=== PATIENT | female | born 1990 | race Caucasian/White ===

== ENCOUNTER → 2016-11-17 20:25 | Observation (INO) ==
[2016-11-17 19:27] LABS: Amphetamine Screen,Urine Negative ng/mL (Cutoff=1000); Barbiturate Screen,Urine Negative ng/mL (Cutoff=200); Benzodiazepines Screen,Urine Negative ng/mL (Cutoff=200); Cannabinoid Screen,Urine Negative ng/mL (Cutoff = 50); Cocaine Screen,Urine Negative ng/mL (Cutoff= 300); Opiate Screen,Urine Negative ng/mL (Cutoff=300); Phencyclidine Screen,Urine Negative ng/mL (Cutoff=25)
[2016-11-17 19:34] LABS: Bilirubin,Urine Negative (Negative); Blood,Urine Negative (Negative); Clarity,Urine Cloudy (Clear); Color,Urine Yellow (Yellow); Glucose,Urine (UA) Normal (Normal); Ketones,Urine Negative (Negative); Leukocyte Esterase,Urine Negative (Negative); Nitrite,Urine Negative (Negative); Protein,Urine Trace mg/dL (Neg-Trace); Specific Gravity,Urine 1.027 (1.010-1.025); Urobilinogen,Urine Normal (Normal)
[2016-11-17 19:54] LABS: WBC,Urine 0-3 per hpf (0-3)
--- NOTE | 2016-11-17 20:27 | Discharge Summary ---
Date of Encounter: 11/17/16 Time of Encounter: 20:28 - Discharge Diagnosis (1) 31 weeks gestation of Priority: Primary Status: Acute Comments: admitted for monitoring and evaluation (2) Decreased movement during Priority: Secondary Status: Acute Comments: Reactive NST 140 bpm baseline. Patient reports feeling movement while on the monitor. Qualifiers: Fetus number: single or unspecified fetus Trimester: third trimester Qualified Code(s): O36.8130 - Decreased movements, third trimester, not applicable or unspecified (3) Vaginal discharge Priority: Secondary Status: Acute Comments: Negative nitrazine. - Discharge Medications Home Medications: Cephalexin [Keflex] 1 tab PO DAILY 11/17/16 [History] Vit/Iron Fumarate/FA [ Tablet] 1 tab PO DAILY 11/17/16 [History ] Allergies/Adverse Reactions: 3 Allergy/AdvReac Type Severity Reaction Status Date / Time No Known Allergies Allergy Verified 11/17/16 19:04 Data Procedures and tests throughout hospitalization: Laboratory Tests 11/17/16 11/17/16 19:05 19:05 Urine Color Yellow Urine Clarity Cloudy A Urine pH 7.0 Ur Specific Johnston 1.027 H Urine Protein Trace Urine Glucose (UA) Normal Urine Ketones Negative Urine Blood Negative Urine Nitrite Negative Urine Bilirubin Negative Urine Urobilinogen Normal Ur Leukocyte Esterase Negative Urine Microscopic WBC 0-3 Ur Culture Indicated? NO Urine Opiates Screen Negative Ur Barbiturates Screen Negative Ur Phencyclidine Scrn Negative Ur Amphetamines Screen Negative U Benzodiazepines Scrn Negative Urine Cocaine Screen Negative U Marijuana (THC) Screen Negative Labs on day of discharge: Labs from last 24 hours 11/17/16 11/17/16 19:05 19:05 Urine Color Yellow Urine Clarity Cloudy A Urine pH 7.0 Ur Specific Johnston 1.027 H Urine Protein Trace Urine Glucose (UA) Normal Urine Ketones Negative Urine Blood Negative Urine Nitrite Negative Urine Bilirubin Negative Urine Urobilinogen Normal Ur Leukocyte Esterase Negative Urine Microscopic WBC 0-3 Ur Culture Indicated? NO Urine Opiates Screen Negative Ur Barbiturates Screen Negative Ur Phencyclidine Scrn Negative Ur Amphetamines Screen Negative U Benzodiazepines Scrn Negative Urine Cocaine Screen Negative U Marijuana (THC) Screen Negative Date of admission: 11/17/16 18:45 Discharging clinician: Maria C Esparza Anticipated date of discharge: 11/17/16 - Patient Status Disposition: Home, Self-Care Condition: Good Functional capacity at discharge: independent ambulation - Discharge Instructions Follow Up With: Misty Gomez MD [Partnered Physician] - Additional Instructions: Keep appointments LABOR AND DELIVERY DISCHARGE INSTRUCTIONS Signs and Symptoms to be Reported to your Doctor Immediately: * Sudden gush, continuous or intermittent lead of fluid from vagina (note the time of gush and color of fluid) * Onset of bright red vaginal bleeding with or without pain (if you had a vaginal exam during this visit you may notice some dark red spotting. This is normal.) * Lower abdominal cramping or backache that is premenstrual-like feeling. * More than 6 contractions in one hour. * Burning during urination, having to urinate more frequently or pain in your mid-back. * A change in the baby's activity. This could be an increase or decrease in activity. * Severe headache which does not go away with tylenol. * Sudden swelling in the face, hands, arms and/or legs. * Upper abdominal pain - sometimes associated with heartburn or nausea and is not relieved by Maalox, Mylanta or Tums. * Dizziness or blurred vision or visual disturbances (seeing stars/lights). * Kick Counts One hour after a meal, lay down on one side in a quiet place. Count the number of james the baby moves during an hour. If less than 6 movements, notify your physician. Diet: *Force fluids - 8-10 tall glasses of fluid per day. May include popsicles and jello. *Limit caffeine - this includes chocolate, coffee, tea, any soft drink containing such as all kana, Guillermo Yellow and Mountain Dew - Diet and Activity Activity: increase activity as tolerated Diet: regular diet Hospital Course [employer]ORY [employer]PER[employer]OR Hospital course: Patient is 26 y/o at 31w2d presents to labor and delivery with complaints of decreased movement for 1 day. Patient also reports leaking but states she believes it was urine. Patient is on last day of keflex for UTI. Patient denies feeling contractions but reports some cramping. Patient denies and VB, vaginal itching or burning, denies dysuria or urinary frequency. Patient reports she does not drink much water and hasn't drank much of anything today. Time Attestation: Total time spent providing and/or coordinating discharge services: Time Spent: Less than 30 minutes Exam - Constitutional General appearance IM: A&O X 3, pleasant, answers questions appropriately - Respiratory Respiratory exam: Present: CTAB - Cardiovascular Cardiovascular exam IM: Present: RRR, +S1, +S2 - GI/Abdominal GI/Abdominal exam IM: normal bowel sounds Additional comments: no CVA tenderness - Additional comments: SVE: Closed/Thick/-3, Nitrazine negative - Extremities Exam Extremities exam IM: Present: full ROM, normal capillary refill, normal inspection - Neurological Exam Neurological exam: alert, oriented X3, reflexes normal - Other Additional findings: FHR 140 bpm moderate variability +15x15 accels no decels noted. Occasional contraction noted. - VTE Reasons for not Prescribing Prophylaxis: Treatment not Indicated - Low risk for VTE
== END | disposition home or self-care (01) ==
LOC: 1NENULAB
PROVIDERS: ADMIT Obstetrics & Gynecology; ATTEND Obstetrics & Gynecology

== ENCOUNTER 2016-12-23 05:19 | Inpatient (IN) ==
[2016-12-23] MEDS ORDERED: Oxytocin 20 units/ LR 1000 mL 20 UNIT/1,000 ML BAG IVC ONE (05:26)
[2016-12-23] MEDS ORDERED: Ringers Solution, Lactated 1,000 ML IVC ONE (05:26)
[2016-12-23] MEDS ORDERED: Metoclopramide 10 MG/2 ML VIAL IVP ONE (05:26)
[2016-12-23] MEDS ORDERED: CeFAZolin Pre 2,000 MG/100 ML 2,000 MG/100 ML BAG IVPB ONE (05:26)
[2016-12-23] MEDS ORDERED: Famotidine 20 MG/2 ML VIAL IVP ONE (05:26)
--- NOTE | 2016-12-23 05:41 | OB/GYN History & Physical ---
Date of Encounter: 12/23/16 Time of Encounter: 05:25 Assessment and Plan (1) 36 weeks gestation of Current visit: No Status: Acute (2) Breech presentation on examination Current visit: Yes Status: Acute -Admit for . Qualifiers: Fetus number: single or unspecified fetus Qualified Code(s): O32.1XX0 - Maternal care for breech presentation, not applicable or unspecified (3) Encounter for suspected PROM, with rupture of membranes not found Current visit: No Status: Acute History of Present Illness Chief complaint: PROM HPI: Ms. Larios is a 26 year old female at 36 3/7 wks gestation that presents for PROM. Patient says that she had vaginal fluid leaking at 0445 this morning. She denies any contractinos. Denies vaginal bleeding. She denies any chest pain. Admits to nausea but denies vomiting. Denies fever, dysuria, diarrhea, headaches, or vision changes. Blood type: O+ HIV Ag/Ab: Non-reactive T. pallidum: negative Rubella Ab: negative Varicella Ab: positive HepBSAg: non-reactive (07/07/16) GBS: pending results Past Med Surg Social Fam HX - Past Medical History Medical history: no medical history Psychiatric history: no psych history - Past Surgical History Surgical History: other - Social History Smoking Status: Former smoker Smokeless Tobacco Status: No Alcohol use: none Drug use: none - Family History Father Living Status: Still Living Hx Family Cardiac Disorders: No Hx Family Respiratory Disorders: No Hx Family Cancer: No Hx Family GI Disorders: No Hx Family Endocrine Disorder: No Hx Family Neuromuscular Disorders: No Hx Family Neurologic Disorders: No Hx Family HEENT Disorders: No Hx Family Autoimmune Disorders: No Obstetrical History - Pregnancies : 2 Para: 0 Term: 0 : 0 Ab's: 1 Livin Medications and Allergies Vit/Iron Fumarate/FA [ Tablet] 1 tab PO DAILY 11/17/16 [History ] 3 Allergy/AdvReac Type Severity Reaction Status Date / Time No Known Allergies Allergy Verified 12/23/16 06:12 Exam - Constitutional Constitutional: well developed, well nourished, no acute distress, average body habitus - HEENT HEENT: PERRL, Mucus Membranes Moist - Lungs Respiratory exam: CTAB - Cardiovascular Cardiovascular exam: RRR, +S1, +S2 - Abdomen Abdomen: Present: bowel sounds normal, gravid, non tender - Extremities Extremities exam: normal capillary refill, normal inspection, radial pulses palpable and symmetrical Deep Tendon Reflex Grade: 2+ Normal - Uterus Uterus exam: Present: normal size, normal contour Results Result Diagrams: 12/23/16 05:25 All other labs normal. - VTE Reasons for not Prescribing Prophylaxis: Treatment not Indicated - Low risk for VTE
[2016-12-23 05:42] LABS: Basophils % 0.1 %; Hematocrit 33.6 % (35.3-44.9); Hemoglobin 11.7 g/dL (11.5-15.4); Immature Granulocytes % 1.4 % (0-4); Lymphocytes % 7.3 %; Mean Corpuscular HGB Conc 34.8 g/dL (31.6-35.5); Mean Corpuscular Hemoglobin 29.5 pg (28.0-33.3); Mean Corpuscular Volume 84.8 fL (83.0-100.0); Mean Platelet Volume 12.4 fL (9.4-12.4); Monocytes % 7.4 %; Neutrophils # 11.4 K/mcL (1.6-8.9); Platelet Count 214 K/mcL (140-400); Red Blood Count 3.96 M/mcL (3.82-4.97); Red Cell Distribution Width 13.2 % (11.5-14.5); Segmented Neutrophils % 83.8 %
[2016-12-23] MEDS ORDERED: *HR* HYDROmorphone (PF) 1 MG/ML SYRINGE IVP PRN ×2 (05:51→10:15)
[2016-12-23] MEDS ORDERED: *HR* Promethazine 25 MG/ML VIAL IVP PRN (05:51)
--- NOTE | 2016-12-23 05:51 | Anesthesia Evaluation PreOp ---
Date of Encounter: 12/23/16 Time of Encounter: 05:50 - Past History Planned Operation: G1 breech, primary Cardiac History: Denies any Significant Hx Pulmonary History: Denies Any Significant HX CERTIFIED PHLEBOTOMIST History: Denies Any Significant HX Other Medical History: Denies Any Significant HX Anesthesia History: No Prior Anesthetic Complications, Past Anesthesia Alcohol Use: none Drug use: none Medications and Allergies Vit/Iron Fumarate/FA [ Tablet] 1 tab PO DAILY 11/17/16 [History ] 3 Allergy/AdvReac Type Severity Reaction Status Date / Time No Known Allergies Allergy Verified 11/17/16 19:04 Anesthesia Exam - HEENT Pupil (Motor): Pupils equal Mallampati: II Teeth: Normal Oral Opening: Greater than 3 - CERTIFIED PHLEBOTOMIST LOC: Oriented CERTIFIED PHLEBOTOMIST Motor: Normal RUE, Normal LUE, Normal RLE, Normal LLE, Normal Face CERTIFIED PHLEBOTOMIST Sensory: Normal: RUE, LUE, RLE, LLE, Face - Cardiac Rhythm: Regular Murmur: None - Pulmonary Breath Sounds: bilateral Clear Respiratory Effort: Symmetrical Anesthesia Assess/Plan ASA Score: 2 Modified Maria T Scale for Level of Consciousness: Cooperative, oriented, and tranquil Anesthetic Plan: General, Regional Monitoring Plan: Standard Monitors Recovery Plan: PACU
[2016-12-23] MEDS ORDERED: Ondansetron 4 MG/2 ML VIAL ONE (06:09)
[2016-12-23] MEDS ORDERED: *HR* Morphine Sulfate/PF 5 MG/10 ML AMPUL ONE (06:09)
[2016-12-23] MEDS ORDERED: *HR* Oxytocin 10 UNIT/ML VIAL IM ONE (06:09)
[2016-12-23] MEDS ORDERED: *HR* FentaNYL (PF) 100 MCG/2 ML VIAL ONE (06:10)
[2016-12-23] MEDS ORDERED: EPHEDrine 50 MG/ML VIAL ONE (06:10)
[2016-12-23] MEDS ORDERED: Ringers Solution, Lactated 1,000 ML ONE ×2 (06:11→07:09)
[2016-12-23 06:20] LABS: Amphetamine Screen,Urine Negative ng/mL (Cutoff=1000); Barbiturate Screen,Urine Negative ng/mL (Cutoff=200); Benzodiazepines Screen,Urine Negative ng/mL (Cutoff=200); Cannabinoid Screen,Urine Negative ng/mL (Cutoff = 50); Cocaine Screen,Urine Negative ng/mL (Cutoff= 300); Opiate Screen,Urine Negative ng/mL (Cutoff=300); Phencyclidine Screen,Urine Negative ng/mL (Cutoff=25)
--- NOTE | 2016-12-23 08:39 | Anesthesia Procedures ---
Date of Encounter: 12/23/16 Time of Encounter: 08:39 Procedures: Anesthesia - Epidural/Spinal Patient examined: Yes OB Eval: Gestational age: 39 OB Eval: : 1 OB Eval: Hx Para: 0 OB Eval: Dilated at (cm): 4 OB Eval: Contractions: Non-stressed pattern Consent Obtained: Yes Supplemental Oxygen: Nasal Cannula Supplemental Oxygen Rate (L/min): 3 Site Prep: Aseptic Technique, Sterile prep and drape, 0.5% Chlorhexidine/Alcohol Patient position: upright Local Anesthetic: Lidocaine 1% Amount of Local Anesthetic used: 3 Interspace Used: L2-L3 CSF: Yes Paresthesia: No Spinal Needle Gauge: 25 Spinal Dose: marcaine 12mg, duramorph 0.2, fentanyl 7 mcg Procedure: aseptic, tolerated well, VSS, effective Vitals + FHT's: 130/88 68 16 fht 133
--- NOTE | 2016-12-23 09:32 | OB/GYN Procedure Note ---
Section - Date of procedure: 12/23/16 Preop diagnosis: breech, other (P PROM) Post-op diagnosis: same (Complete breech) Procedure: primary low transverse Surgeon: Sanjeev Newton Estimated blood loss (cc): 300 Anesthesiologist: Cornel Estrada Anesthesia Type: Spinal section complications: none Disposition: PACU Specimens: Placenta - (s) A Delivery Date: 12/23/16 Infant Delivery Time: 08:30 Presentation: vertex, complete breech Gender: Male Viability: Viable Pounds: 6 Ounces: 5 at 1 minute: 8 at 5 minutes: 9 Specimens collected: cord blood Placenta: complete extraction - Narrative Narrative: The patient was taken to the operating room. After satisfactory spinal anesthesia was achieved, she was placed in supine position, Hester catheter inserted, and prepped and draped in usual manner. After appropriate timeout, the abdomen was entered through a standard Maylard incision. The Cam retractor was placed .The peritoneum overlying the lower uterine segment was incised in the U-shaped fashion. The uterine cavity was entered sharply extended laterally. Fluid was clear. The buttocks were delivered , legs delivered , arms delivered , and head delivered without difficulty. The umbilical cord doubly clamped and cut and the infant was handed to nursery staff further evaluation. Placenta was removed and sent to pathology for analysis. Uterus closed in a single layer using 0 Monocryl. After assurance of hemostasis, the abdomen was closed standard fashion using 0 Vicryl on the fascia and 3-0 Monocryl on the skin. Sterile dressing was applied. Patient did well was taken to recovery in satisfactory condition. Counts were correct.
[2016-12-23] MEDS ORDERED: Ondansetron 4 MG/2 ML VIAL IVP PRN ×2 (10:15→12:07)
[2016-12-23] MEDS ORDERED: Acetaminophen 325 MG TABLET PO PRN (12:07)
[2016-12-23] MEDS ORDERED: Sennosides 8.6 MG TABLET PO PRN (12:07)
[2016-12-23] MEDS ORDERED: Simethicone 80 MG TAB.CHEW PO PRN (12:07)
[2016-12-23] MEDS ORDERED: Oxytocin 20 units/ LR 1000 mL 20 UNIT/1,000 ML BAG IVC SCH (12:07)
[2016-12-23] MEDS ORDERED: Measles/Mumps/Rubella Vacc 0.5 ML VIAL SQ ONE (12:07)
[2016-12-23] MEDS ORDERED: Metoclopramide 10 MG/2 ML VIAL IVP PRN (12:07)
[2016-12-23] MEDS: *HR* OxyCODONE/APAP 5/325 TABLET PO PRN ×2 (13:23→18:43)
[2016-12-23] MEDS: Ibuprofen 600 MG TABLET PO PRN (16:21)
[2016-12-24] MEDS: Ibuprofen 600 MG TABLET PO PRN ×2 (00:41→16:51)
[2016-12-24] MEDS: *HR* OxyCODONE/APAP 5/325 TABLET PO PRN ×5 (00:41→20:17)
[2016-12-24 06:33] LABS: Basophils % 0.2 %; Eosinophils % 0.4 %; Hematocrit 28.8 % (35.3-44.9); Immature Granulocytes % 1.1 % (0-4); Lymphocytes # 1.5 K/mcL (0.6-4.6); Mean Corpuscular Hemoglobin 28.6 pg (28.0-33.3); Mean Corpuscular Volume 86.7 fL (83.0-100.0); Mean Platelet Volume 12.1 fL (9.4-12.4); Monocytes # 0.9 K/mcL (0.0-1.3); Monocytes % 9.1 %; Neutrophils # 7.5 K/mcL (1.6-8.9); Platelet Count 168 K/mcL (140-400); Red Blood Count 3.32 M/mcL (3.82-4.97); Red Cell Distribution Width 13.2 % (11.5-14.5); Segmented Neutrophils % 74.2 %
[2016-12-24 06:34] LABS: Hemoglobin 9.5 g/dL (11.5-15.4)
[2016-12-24] MEDS ORDERED: NON-FORMULARY MEDICATION 1 EACH EACH (Prenatal Vit/Iron Fumarate/Fa [Prenatal Tablet] 1 TA PO SCH (09:00)
[2016-12-24] MEDS: Prenatal Vit/FA 1 EACH TABLET PO SCH (09:26)
--- NOTE | 2016-12-24 12:09 | OB/GYN Progress Note ---
Date of Encounter: 12/24/16 Time of Encounter: 11:45 - Assessment and Plan (1) Status post Current Visit: Yes Status: Acute Patient's pain is well controlled. Minimal vaginal bleeding. - Continue pain control. (2) 36 weeks gestation of Current Visit: Yes Status: Resolved (3) anemia Current Visit: Yes Status: Acute Hemoglobin stable at 9.5. - continue iron supplements. Subjective - Subjective Principal diagnosis: S/P Interval history: When seen today, patient says that she is doing well and is in good mood. She admits to some minor vaginal bleeding, but says that it has been getting better since the procedure. She has minor abdominal discomfort with ambulation but none while laying down. She denies any BAKER, vision changes, chest pain, shortness of breath, fever, chills, nausea, or vomiting. She is having some trouble breast feeding the baby. As a result, the baby was transferred to the nursery. She will attempt to breast feed the baby later today. Patient reports: appetite normal, voiding normally, pain well controlled, ambulating normally : doing well Objective - Vital Signs Latest vital signs: Vital Signs Temp Pulse Pulse Resp BP Pulse Ox 12/24/16 07:30 97.5 F L 61 16 112/75 100 12/24/16 05:30 98.2 F 60 60 15 109/63 100 12/24/16 00:40 97.7 F 63 16 106/66 97 12/23/16 19:30 98.2 F 62 12 120/72 97 12/23/16 15:55 98.9 F 63 16 119/63 98 12/23/16 14:55 97.6 F 72 16 100/64 98 12/23/16 13:45 98.2 F 63 16 126/76 99 12/23/16 12:45 97.5 F L 70 16 131/76 98 12/23/16 12:15 98.7 F 71 16 138/54 98 Intake and Output 12/23/16 12/24/16 12/24/16 23:59 07:59 15:59 Intake Total 1420 / 1420 0 / 0 800 / 800 Output Total 450 / 450 1949 / 1949 200 / 200 Balance 970 / 970 -1949 / 600 / 600 Intake: Oral 1420 / 1420 0 / 0 800 / 800 Output: Urine 200 / 200 200 / 200 Catheter 450 / 450 1750 / 1750 Other: Meal Dinner Stool Characteristics Normal for Patient Weight 81.7 kg Patient Weight 12/24/16 23:59 Weight 81.7 kg - Exam Lungs: bilateral: normal Chest: Normal S1, Normal S2 Extremities: Present: normal. Absent: tenderness Abdomen: Present: normal appearance, soft, other (Minor diffuse tenderness. ) Incision: Present: normal, dry, intact, dressed Uterus: Present: normal, firm - Labs Labs: Laboratory Results - last 24 hr 12/24/16 05:09 WBC 10.0 RBC 3.32 L Hgb 9.5 L D Hct 28.8 L MCV 86.7 MCH 28.6 MCHC 33.0 RDW 13.2 Plt Count 168 MPV 12.1 Immature Gran % 1.1 Seg Neutrophils % 74.2 Lymphocytes % 15.0 Monocytes % 9.1 Eosinophils % 0.4 Basophils % 0.2 Neutrophils # 7.5 Lymphocytes # 1.5 Monocytes # 0.9 Eosinophils # 0.0 Basophils # 0.0
[2016-12-25] MEDS: *HR* OxyCODONE/APAP 5/325 TABLET PO PRN ×4 (04:31→20:47)
[2016-12-25] MEDS: Ibuprofen 600 MG TABLET PO PRN ×2 (08:57→20:47)
[2016-12-25] MEDS: Prenatal Vit/FA 1 EACH TABLET PO SCH (08:58)
--- NOTE | 2016-12-25 10:10 | OB/GYN Progress Note ---
Date of Encounter: 12/25/16 Time of Encounter: 10:08 - Assessment and Plan (1) Breast feeding status of mother Current Visit: Yes Status: Acute continue support prn (2) Status post Current Visit: Yes Status: Acute Continue routine postop/ care discharge home tomorrow Subjective - Subjective Principal diagnosis: postop/ day 2 primary c/s for breech presentation and SROM Interval history: Patient resting in bed. Patient reports diarrhea this morning. is in room with Plock. Patient reports: appetite normal, voiding normally, pain well controlled, ambulating normally [place]: doing well, nursing well Objective - Vital Signs Latest vital signs: Vital Signs Temp Pulse Pulse Resp BP Pulse Ox 12/25/16 08:10 98.1 F 82 16 130/78 100 12/24/16 20:51 72 12/24/16 20:20 97.7 F 72 16 102/61 99 Intake and Output 12/24/16 12/25/16 12/25/16 23:59 07:59 15:59 Intake Total 240 / 240 400 / 400 Output Total 400 / 400 1000 / 1000 Balance -160 / -160 -1000 / -1000 400 / 400 Intake: Oral 240 / 240 400 / 400 Output: Urine 400 / 400 1000 / 1000 Other: Meal Dinner Percent of Meal Consumed 100% Weight 81 kg Patient Weight 12/25/16 23:59 Weight 81 kg - Exam Lungs: bilateral: normal Chest: Normal S1, Normal S2 Extremities: Present: normal Abdomen: Present: normal appearance, soft Incision: Present: normal, dry, intact Uterus: Present: normal, firm Fundal Height: 2 Comments: U/2
--- NOTE | 2016-12-26 08:25 | Discharge Summary ---
Date of Encounter: 12/26/16 Time of Encounter: 08:10 - Discharge Diagnosis (1) Status post Priority: Primary Status: Acute (2) 36 weeks gestation of Priority: Primary Status: Resolved (3) anemia Priority: Primary Status: Acute - Discharge Medications Prescriptions: Ibuprofen [Motrin] 600 mg PO Q6HR PRN #60 tablet PRN Reason: Cramping OxyCODONE/APAP 5/325 [Percocet 5/325 MG] 1 each PO Q6HR PRN #20 tablet PRN Reason: Moderate pain 4-6 Ferrous Sulfate 325 mg PO DAILY #30 tablet Home Medications: Vit/Iron Fumarate/FA [ Tablet] 1 tab PO DAILY 11/17/16 [History ] Ferrous Sulfate 325 mg PO DAILY #30 tablet 12/26/16 [Rx] Ibuprofen [Motrin] 600 mg PO Q6HR PRN #60 tablet 12/26/16 [Rx] OxyCODONE/APAP 5/325 [Percocet 5/325 MG] 1 each PO Q6HR PRN #20 tablet 12/26/16 [Rx] Allergies/Adverse Reactions: 3 Allergy/AdvReac Type Severity Reaction Status Date / Time No Known Allergies Allergy Verified 12/23/16 06:12 Data Procedures and tests throughout hospitalization: Laboratory Tests 12/23/16 12/23/16 12/24/16 05:25 06:08 05:09 WBC 13.6 H 10.0 RBC 3.96 3.32 L Hgb 11.7 9.5 L D Hct 33.6 L 28.8 L MCV 84.8 86.7 MCH 29.5 28.6 MCHC 34.8 33.0 RDW 13.2 13.2 Plt Count 214 168 MPV 12.4 12.1 Immature Gran % 1.4 1.1 Seg Neutrophils % 83.8 74.2 Lymphocytes % 7.3 15.0 Monocytes % 7.4 9.1 Eosinophils % 0.0 0.4 Basophils % 0.1 0.2 Neutrophils # 11.4 H 7.5 Lymphocytes # 1.0 1.5 Monocytes # 1.0 0.9 Eosinophils # 0.0 0.0 Basophils # 0.0 0.0 Urine Opiates Screen Negative Ur Barbiturates Screen Negative Ur Phencyclidine Scrn Negative Ur Amphetamines Screen Negative U Benzodiazepines Scrn Negative Urine Cocaine Screen Negative U Marijuana (THC) Screen Negative Date of admission: 12/23/16 05:19 Primary care physician: PCP NONE Discharging clinician: Dillan Tucker Anticipated date of discharge: 12/26/16 - Patient Status Disposition: Home, Self-Care Condition: Good Functional capacity at discharge: independent ambulation Overall status at discharge: patient is progressing back to baseline - Discharge Instructions Instructions: Anemia (GEN) Follow Up With: NONE,PCP [Primary Care Provider] - Sanjeev Newton MD [Partnered Physician] - - Diet and Activity Activity: resume usual activities as tolerated Diet: regular diet Hospital Course Reason for admission: section Delivery: section Episiotomy: none Laceration: none Other procedures: none complications: none Discharge diagnosis: delivery baby: male Hospital course: Ms. Larios is a 26 year old female that was at 36 3/7 wks gestation when she presents for PROM. Patient says that she had vaginal fluid leaking at 0445 the morning. The patient was taken to the operating room for a due to breech presentation on examination. After satisfactory spinal anesthesia was achieved, she was placed in supine position, Hester catheter inserted, and prepped and draped in usual manner. After appropriate timeout, the abdomen was entered through a standard Maylard incision. The Cam retractor was placed .The peritoneum overlying the lower uterine segment was incised in the U-shaped fashion. The uterine cavity was entered sharply extended laterally. Fluid was clear. The buttocks were delivered , legs delivered , arms delivered , and head delivered without difficulty. The umbilical cord doubly clamped and cut and the was handed to nursery staff further evaluation. Placenta was removed and sent to pathology for analysis. Uterus closed in a single layer using 0 Monocryl. After assurance of hemostasis, the abdomen was closed standard fashion using 0 Vicryl on the fascia and 3-0 Monocryl on the skin. Sterile dressing was applied. Patient did well was taken to recovery in satisfactory condition. Counts were correct. Patient had some issues with diarrhea yesterday. She denies any blood in her stool. She was taken off of colace and put on immodium. When seen today she currently denies any diarrhea since yesterday afternoon. She says she has light vaginal bleeding and it has been improving since the delivery. She is in good mood. She has been able to breast feed the baby and the baby has been doing well. She denies any chest pain, headaches, light-headedness, shortness of breath, dizziness, nausea, vomiting, or weakness. She has a follow-up appointment with Dr. Newton on 01/04/17. [facility] report reviewed. Time Attestation: Total time spent providing and/or coordinating discharge services: Time Spent: Less than 30 minutes - VTE Reasons for not Prescribing Prophylaxis: Treatment not Indicated - Low risk for VTE Documentation of Mechanical Device: Intermittent pneumatic compression device Exam - Constitutional Vitals: Temp Pulse Resp BP Pulse Ox 98 F 83 16 108/67 98 12/25/16 20:20 12/25/16 20:20 12/25/16 20:56 12/25/16 20:20 12/25/16 20:20 General appearance IM: A&O X 3, pleasant, no acute distress, answers questions appropriately - Respiratory Respiratory exam: Present: CTAB - Cardiovascular Cardiovascular exam IM: Present: RRR, +S1, +S2 - GI/Abdominal GI/Abdominal exam IM: normal bowel sounds, soft Incision: normal, dry, intact - Uterine Tone: Firm - Extremities Exam Extremities exam IM: Present: full ROM, normal capillary refill, normal inspection, radial pulses palpable and symmetrical. Absent: pedal edema - Neurological Exam Neurological exam: reflexes normal, no focal deficits - Other Additional findings: [facility] report reviewed by Viraj Esparza CNM on 12/25/2016 I examined this patient and my medical decision-making was reviewed with the Resident Physician. I agree with the documented findings, disposition and treatment plan as described. Cole Nunez CNM.
[2016-12-26] MEDS: Prenatal Vit/FA 1 EACH TABLET PO SCH (09:05)
[2016-12-26] MEDS: *HR* OxyCODONE/APAP 5/325 TABLET PO PRN (09:06)
[2016-12-26 09:28] VITALS: BP 109/68
[2016-12-26] MEDS ORDERED: FLUARIX QUAD 2017-18 36MOS UP/PF 0.5 ML SYRINGE IM ONE (13:39)
== END 2016-12-26 15:31 | disposition home or self-care (01) | DRG 766 ==
LOC: 1NENULAB 05:19 → 1NENUOBS 11:45
PROVIDERS: ADMIT Obstetrics & Gynecology; ATTEND Obstetrics & Gynecology

== ENCOUNTER 2019-10-17 19:50 | Inpatient (IN) ==
[~2019-10-17 19:50] MED LIST: Azithromycin 500 MG in 0.9 % Sodium Chloride 250 ML IVPB ONE; CeFAZolin 2,000 MG/50 ML BAG IVPB ONE; D5% in 0.45% NACL 1,000 ML IVC SCH; Famotidine 20 MG/2 ML VIAL IVP ONE; Metoclopramide 10 MG/2 ML VIAL IVP ONE; Oxytocin 20 units/ LR 1000 mL 20 UNIT/1,000 ML BAG IVC ONE
[2019-10-17] MEDS ORDERED: Ringers Solution, Lactated 1,000 ML IVC SCH (20:00)
[2019-10-17] MEDS ORDERED: Oxytocin 20 units/ LR 1000 mL 20 UNIT/1,000 ML BAG IVC SCH (20:00)
[2019-10-17 20:18] LABS: Basophils % 0.3 %; Eosinophils % 0.4 %; Hematocrit 39.4 % (35.3-44.9); Hemoglobin 13.2 g/dL (11.5-15.4); Immature Granulocytes % 0.3 % (0-4); Lymphocytes # 1.7 K/mcL (0.6-4.6); Lymphocytes % 17.9 %; Mean Corpuscular HGB Conc 33.5 g/dL (31.6-35.5); Mean Corpuscular Hemoglobin 28.1 pg (28.0-33.3); Mean Platelet Volume 12.8 fL (9.4-12.4); Monocytes # 0.6 K/mcL (0.0-1.3); Monocytes % 6.5 %; Neutrophils # 7.1 K/mcL (1.6-8.9); Platelet Count 187 K/mcL (140-400); Red Blood Count 4.69 M/mcL (3.82-4.97); Red Cell Distribution Width 14.6 % (11.5-14.5); Segmented Neutrophils % 74.6 %; White Blood Count 9.5 K/mcL (4.3-11.1)
[2019-10-17] MEDS ORDERED: *HR* FentaNYL (PF) 100 MCG/2 ML VIAL ONE (20:47)
[2019-10-17] MEDS ORDERED: *HR* Morphine Sulfate/PF 10 MG/10 ML AMPUL ONE (20:47)
[2019-10-17] MEDS ORDERED: Acetaminophen IV 1,000 MG/100 ML INFUS..BTL ONE (21:00)
[2019-10-17] MEDS ORDERED: Ondansetron 4 MG/2 ML VIAL IVP ONE (21:20)
[2019-10-17] MEDS ORDERED: *HR* OxyCODONE Immed Rel 5 MG TABLET PO PRN (21:20)
[2019-10-17] MEDS ORDERED: *HR* Promethazine 25 MG/ML VIAL IVP PRN (21:20)
[2019-10-17] MEDS ORDERED: Ketorolac 30 MG/ML VIAL ONE (21:23)
[2019-10-17] MEDS ORDERED: *HR* Oxytocin 10 UNIT/ML VIAL IM ONE (21:23)
[2019-10-17] MEDS ORDERED: Ondansetron 4 MG/2 ML VIAL ONE (21:23)
[2019-10-18] MEDS ORDERED: Naloxone 0.4 MG/ML INJ IVP PRN (01:34)
[2019-10-18] MEDS ORDERED: Simethicone 80 MG TAB.CHEW PO PRN (01:34)
[2019-10-18] MEDS ORDERED: Oxytocin 20 units/ LR 1000 mL 20 UNIT/1,000 ML BAG IVC SCH (01:34)
[2019-10-18] MEDS ORDERED: Ondansetron 4 MG/2 ML VIAL IVP PRN (01:34)
[2019-10-18] MEDS ORDERED: Metoclopramide 10 MG/2 ML VIAL IVP PRN (01:34)
[2019-10-18] MEDS ORDERED: Rho Immune Globulin 1,500 UNIT SYRINGE IM ONE (01:34)
[2019-10-18] MEDS: Ibuprofen 600 MG TABLET PO SCH ×3 (02:37→20:18)
[2019-10-18 08:29] LABS: Basophils % 0.2 %; Eosinophils # 0.1 K/mcL (0.0-0.6); Eosinophils % 0.6 %; Hematocrit 33.7 % (35.3-44.9); Immature Granulocytes % 0.3 % (0-4); Lymphocytes # 1.5 K/mcL (0.6-4.6); Lymphocytes % 16.1 %; Mean Corpuscular HGB Conc 33.5 g/dL (31.6-35.5); Mean Corpuscular Hemoglobin 28.2 pg (28.0-33.3); Mean Platelet Volume 12.3 fL (9.4-12.4); Monocytes # 0.9 K/mcL (0.0-1.3); Monocytes % 9.8 %; Platelet Count 161 K/mcL (140-400); Red Blood Count 4.01 M/mcL (3.82-4.97); Red Cell Distribution Width 14.3 % (11.5-14.5); White Blood Count 9.6 K/mcL (4.3-11.1)
[2019-10-18 08:34] LABS: Hemoglobin 11.3 g/dL (11.5-15.4)
[2019-10-18] MEDS: Acetaminophen 325 MG TABLET PO SCH ×2 (08:43→15:19)
[2019-10-18] MEDS: *HR* OxyCODONE Immed Rel 5 MG TABLET PO PRN ×2 (08:43→20:18)
[2019-10-18] MEDS ORDERED: Prenatal Vit/FA 1 EACH TABLET PO SCH (09:00)
[2019-10-18] MEDS ORDERED: Lidocaine 1% 20 ML MDV ID ONE (19:39)
[2019-10-18] MEDS ORDERED: Etonogestrel 68 MG IMPLANT IL ONE (19:39)
[2019-10-18 19:58] VITALS: BP 102/57
== END 2019-10-18 22:32 | disposition home or self-care (01) | DRG 788 ==
LOC: 1NENULAB → 1NENUOBS 10-18 06:53
PROVIDERS: ADMIT Obstetrics & Gynecology; ATTEND Obstetrics & Gynecology